=== PATIENT | female | born 1985 | race Caucasian/White ===

== ENCOUNTER 2019-08-31 14:03 | Outpatient (CLI) | payer BC, SELFPAY ==
[2019-08-31 14:59] LABS: Alanine Aminotransferase 23 U/L (4-35); Aspartate Amino Transferase 37 U/L (14-36)
== END 2019-08-31 14:04 | disposition home or self-care (01) ==
PROVIDERS: Visit Provider Podiatrist Foot & Ankle Surgery
DX: B35.1 Tinea unguium (principal)
CPT/HCPCS: 36415; 84450; 84460

== ENCOUNTER 2019-11-29 13:51 | Outpatient (CLI) | payer BC, SELFPAY ==
[2019-11-29 14:40] LABS: Alanine Aminotransferase 18 U/L (4-35); Aspartate Amino Transferase 31 U/L (14-36)
== END 2019-11-29 13:52 | disposition home or self-care (01) ==
PROVIDERS: PCP Family Medicine; Visit Provider Podiatrist Foot & Ankle Surgery
DX: B35.1 Tinea unguium (principal)
CPT/HCPCS: 36415; 84450; 84460

== ENCOUNTER 2020-03-11 13:43 | Outpatient (CLI) | payer BC, SELFPAY ==
[2020-03-11 14:22] LABS: Alanine Aminotransferase 21 U/L (4-35); Aspartate Amino Transferase 24 U/L (14-36)
== END 2020-03-11 13:44 | disposition home or self-care (01) ==
PROVIDERS: PCP Family Medicine; Visit Provider Podiatrist Foot & Ankle Surgery
DX: B35.1 Tinea unguium (principal)
CPT/HCPCS: 36415; 84450; 84460